=== PATIENT | female | born 1965 | race American Indian/Alaskan Native ===

== ENCOUNTER 2016-11-28 09:03 | Outpatient (CLI) | payer OTHER ==
[2016-11-28] MEDS ORDERED: NACL ONE (11:03)
--- NOTE | 2016-11-28 13:44 | Cat Scan Report ---
CT SCAN OF THE ABDOMEN AND PELVIS WITH CONTRAST: HISTORY: Abdominal mass, pelvic mass. TECHNIQUE: Helical CT in 1.25mm intervals following IV contrast. Sagittal and coronal reconstructions. FINDINGS: No comparison. The uterus is markedly enlarged and lobular measuring 22 x 13 x 16 cm. There are numerous small and large uterine masses consistent with fibroids ranging from 2 cm to 6 cm in diameter. A few of these uterine masses contain scattered calcifications and tiny cystic areas. The endometrium is not clearly identified given the uterine fibroid disease. The adnexa are unremarkable. The liver is normal in size and is without focal defect. No gallstones or biliary dilatation are noted. The spleen and pancreas demonstrate a normal size and attenuation with no evidence of abnormal mass. The kidneys are normal in size and position with no evidence of hydronephrosis or mass. The adrenal glands are normal. There is no intestinal obstruction or ascites. Normal appendix. The abdominal aorta is normal. No abnormalities are identified within the retroperitoneum or mesentery. There is no evidence of peritoneal air or fluid. There is no evidence of any abnormal fluid collections within the pelvis. No adenopathy is identified. The bladder is normal. IMPRESSION: Moderate to severe uterine fibroid disease.
== END 2016-11-28 09:04 | disposition home or self-care (01) ==
LOC: CT 09:03
PROVIDERS: ATTEND Obstetrics & Gynecology
DX: D25.9 Leiomyoma of uterus, unspecified (principal); N85.2 Hypertrophy of uterus; N85.8 Other specified noninflammatory disorders of uterus
CPT/HCPCS: 74177; Q9967